=== PATIENT | male | born 1985 | race Two or more races ===

== ENCOUNTER 2021-02-21 12:57 | Emergency (ER) | payer BC ==
[2021-02-21 13:21] VITALS: BP 129/78; PULSE 98; RESP 18; TEMP 98.2
[2021-02-21] MEDS ORDERED: DIPH,PERTUS(ACELL)TETVAC-LF 0.5 ML VIAL IM ONE (13:45)
--- NOTE | 2021-02-21 13:50 | ED ---
Wound/Laceration HPI - General Chief Complaint: Wound/Laceration Stated Complaint: open wound Time Seen by Provider: 02/21/21 13:26 Source: patient Mode of arrival: ambulatory Limitations: no limitations - History of Present Illness Initial Comments: Patient is a 35-year-old male presenting to the emergency Department with complaints of a laceration to his right upper leg that happened 5 days ago. Patient states he was drinking, using a knife to cut something when asked slipped and he cut his right upper leg. He has a small laceration to the distal portion of his right upper leg, above the knee. There is no active bleeding. He is not up-to-date with his tetanus vaccine. He's had no fevers or chills, no swelling or redness to the area. He has no further complaints. - Related Data Allergies Allergy/AdvReac Type Severity Reaction Status Date / Time No Known Allergies Allergy Verified 02/21/21 13:21 Review of Systems ROS Statement: Those systems with pertinent positive or pertinent negative responses have been documented in the HPI. ROS Other: All systems not noted in ROS Statement are negative. Past Medical History Past Medical History: No Reported History History of Any Multi-Drug Resistant Organisms: None Reported Past Surgical History: No Surgical Hx Reported Past Psychological History: No Psychological Hx Reported Smoking Status: Never smoker Past Alcohol Use History: Daily Past Drug Use History: Marijuana General Exam - General Exam Comments Initial Comments: GENERAL: Patient is well-developed and well-nourished. Patient is nontoxic and in no acute distress. HEAD: Atraumatic, normocephalic. EYES: Pupils equal round and reactive to light, extraocular movements intact, sclera anicteric, conjunctiva are normal. Eyelids were unremarkable. LUNGS: Unlabored respirations. Breath sounds clear to auscultation bilaterally and equal. No wheezes rales or rhonchi. HEART: Regular rate and rhythm without murmurs, rubs or gallops. MUSCULOSKELETAL: Normal extremities with adequate strength and normal range of motion, no pitting or edema. No clubbing or cyanosis. NEUROLOGICAL: Patient is alert and oriented x 3. Normal speech, normal gait. PSYCH: Normal mood, normal affect. SKIN: Warm, Dry, normal turgor, no rashes. Patient has a 1 cm laceration noted to the lateral aspect of his right thigh, above his right knee. There is no active bleeding. Is no surrounding erythema or swelling, no signs of infection. Limitations: no limitations Course Vital Signs 02/21/21 13:18 Temperature 98.2 F Pulse Rate 98 Respiratory 18 Rate Blood Pressure 129/78 O2 Sat by Pulse 100 Oximetry Procedures - Procedures Initial comment: Patient has a 1 cm laceration that is 5 days old on his right lateral thigh. I did apply Steri-Strips to the area. Medical Decision Making - Medical Decision Making Patient is a 35-year-old male here with a 1 cm laceration to his right thigh that happened 5 days ago. We did update his tetanus vaccine today. The area looks free from infection at this time. I did apply Steri-Strips to the area to reinforce healing. Continue to keep the area clean and dry, he is stable for discharge. Disposition Clinical Impression: Laceration of right thigh Disposition: HOME SELF-CARE Condition: Stable Instructions (If sedation given, give patient instructions): Acute Wound Care (ED) Additional Instructions: Please return to the Emergency Department if symptoms worsen or any other concerns. Continue to keep area clean and dry. Showers are fine, no hot tubs/lakes/pools until completely healed. Use Steri-Strips to aid in healing. Is patient prescribed a controlled substance at d/c from ED?: No Referrals: Annika Ortiz MD [Primary Care Provider] - 1-2 days Time of Disposition: 13:50
== END 2021-02-21 14:04 | disposition home or self-care (01) ==
LOC: EC 12:57
DX: S71.111A Laceration without foreign body, right thigh, initial encounter (principal); F12.90 Cannabis use, unspecified, uncomplicated; Z23 Encounter for immunization; W26.0XXA Contact with knife, initial encounter
CPT/HCPCS: 90471; 90715; 99282